=== PATIENT | male | born 1940 | race Caucasian/White ===

== ENCOUNTER 2016-08-05 19:23 | Emergency (ER) | payer MEDICARE, MEDICAID ==
[~2016-08-05] VITALS: Ht 170.2 cm; Wt 67.7 kg
[~2016-08-05 19:23] MED LIST: CHOL10008 PO; UBID400C6 PO; VITA1TAB94 PO
[2016-08-05 19:28] VITALS: BP 147/86; PULSE 56; RESP 16; O2SAT 99
[2016-08-05 19:56] LABS: BASOPHILS % (AUTO) 0.2 % (0-3); EOSINOPHILS % (AUTO) 0.4 % (0-5); MONOCYTES % (AUTO) 9.4 % (4-12); Mean Corpuscular Hemoglobin 37.2 pg (27.0-35.0); Platelet Count 180 bil/L (150-400)
--- NOTE | 2016-08-05 20:00 | ED.REPORT ---
HPI-Chest Pain 40 and Over Date of Service Aug 05, 2016 ED Provider: Dr. Juan Rust D.O. A 76 year old male with a medical history including hypertension presents to the ED with two episodes of chest pain onset last night, waking him up. The pain lasted a few seconds at a time and was described as "dull discomfort." He also reports an episode of diaphoresis this evening that lasted around 30 minutes. He denies nausea, shortness of breath, or dizziness. The patient has been experiencing intermittent hypertension (systolic 130 -140 in the evening) for several months. The patient took ASA this evening. He has had similar episodes of pain during the day over the past few months, but never at night. Nursing Notes Stated Complaint: CHEST PAIN/CHECK HEART Chief Complaint: Chest Pain Nursing Notes Reviewed: Yes Allergies: Coded Allergies: No Known Allergies (Unverified Allergy, Unknown, 08/05/16) Scheduled Cholecalciferol (Vitamin D3) (Vitamin D3) 1,000 Unit Tab.chew 1,000 UNIT PO DAILY Ubidecarenone (Co Q-10) 400 Mg Capsule 400 MG PO DAILY Vitamin B Complex (B-50 Complex) 1 Each Tablet 1 EACH PO DAILY General Time Seen by MD: 19:59 Chief Complaint Chest pain Hx Obtained From: Patient Arrived By: Walk-in Sudden in Onset?: Yes Onset Occurred: 17 - 20 hours ago Context of Onset: Sleeping Symptom Duration: Since onset Location: : Chest left Quality: Dull, Painful Severity: Current: Moderate Severity: Maximum: Moderate Associated with: Reports: Diaphoresis, Denies: Fever, Nausea, Shortness of Breath Pertinent Negative: Relieved by nothing Context Related History: Reports: Hypertension Recent Healthcare: No recent doctor visit Similar Sx Previous: Yes Past Medical History Past Medical History Hypertension not presently on BP meds 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 Dad of old age. He had one sister who ; she was a smoker and a nurse. No brothers. 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 Physical Exam Initial Vital Signs Vital Signs (First) Date Time Temp Pulse Resp B/P Pulse Ox O2 Delivery O2 Flow Rate FiO2 08/05/16 19:28 35.9 56 16 147/86 99 Room Air Initial VS: Reviewed Head / Eyes: Atraumatic, Normocephalic ENT: Conjunctiva normal, No scleral icterus Neck: Supple, Full range of motion Extremities: Vascular intact, Neuro intact, No swelling Skin: Warm, Dry, No cyanosis Neurologic: Alert, Oriented, Nonfocal Psychiatric: Mood/affect normal, Behavior normal, Normal thought content General/Constitutional: Awake, Alert, No acute distress Respiratory / Chest: Breath sounds NL, Breath sounds = bilat, No respiratory distress Cardiovascular: Heart rate NL, Regular rhythm, Heart sounds NL Abdomen: Soft, Non-tender Interpretation & Diagnostics Lab Results Interpretation Result Diagram: 08/05/16194208/05/161942 Test 08/05/16 19:43 08/05/16 23:32 White Blood Count 4.6th/mm3 (3.8-10.1) Red Blood Count 3.60mil/mm3 (4.40-5.80) Hemoglobin 13.4g/dL (13.8-17.2) Hematocrit 37.8% (41.0-50.0) Mean Corpuscular Volume 105.0fL (81-100) Mean Corpuscular Hemoglobin 37.2pg (27.0-35.0) Mean Corpuscular Hemoglobin Concent 35.4% (32.0-37.0) Red Cell Distribution Width 11.6% (12.3-15.4) Platelet Count 180bil/L (150-400) Neutrophils (%) (Auto) 70.0% (40-74) Lymphocytes (%) (Auto) 19.8% (14-46) Monocytes (%) (Auto) 9.4% (4-12) Eosinophils (%) (Auto) 0.4% (0-5) Basophils (%) (Auto) 0.2% (0-3) D-Dimer < 0.5mg/L (<0.50) Sodium Level 137mEq/L (134-144) Potassium Level 4.4mEq/L (3.5-5.2) Chloride Level 99mEq/L (97-108) Carbon Dioxide Level 25mmol/L (18-29) Blood Urea Nitrogen 15mg/dL (8-27) Creatinine 0.94mg/dL (0.76-1.27) Estimat Glomerular Filtration Rate 83mL/min (>59) Glucose Level 95mg/dL (60-99) Calcium Level 8.6mg/dL (8.5-10.1) Magnesium Level 2.2mg/dL (1.6-2.6) Total Bilirubin 0.6mg/dL (0.0-1.2) Aspartate Amino Transf (AST/SGOT) 21U/L (0-50) Alanine Aminotransferase (ALT/SGPT) 16U/L (0-44) Alkaline Phosphatase 84U/L (25-160) Total Protein 7.2g/dL (6.4-8.4) Albumin 4.5g/dL (3.4-5.0) Thyroid Stimulating Hormone (TSH) 2.050uIU/mL (0.450-4.500) Troponin T 0.010ug/L (0.0-0.011) ECG Interpretation ECG Interpretation: Normal sinus rhythm rate [address] segments No signs of ischemia Time: 19:39 Interpreted by: ED physician X-Ray Chest Interpretation Chest Xray Interpretation: IMPRESSION: No source of chest pain is seen. Lung volumes are relatively large, but this may simply represent an aggressive inspiratory effort. Dictated by: Rocky Saha M.D. on 08/05/2016 at 20:22 View: AP & lat Interpretation / Wet Read by: Interpret - Radiologist Re-Eval/Medical Decision Med Decision/Clinical Course Pain seems to be very atypical. Serial troponins were negative. D-dimer was negative. Of note he did feel a little sweaty when his blood pressure 1. Perhaps that is what he has been suffering with. His morning blood pressures been elevated as well. He will take his physician's recommendations and start taking some lisinopril before bedtime. He is going to keep a close eye was blood pressures have this goes. I do recommend close outpatient follow-up. He has had a recently normal and reassuring stress test. Acute RI ruled out. Close outpatient follow-up recommended. I considered acute RI, aortic dissection and pulmonary emboli to be highly unlikely based on history physical and diagnostics. Time of Eval: 21:08 Re-Evaluation/Progress Note: Patient rechecked. While discussing exercise habits, the patient's BP pamela to 156/76 accompanied by diaphoresis. Time of Eval: 23:50 Patient Status: Condition improved Re-Evaluation/Progress Note: Discussed with patient x-ray and lab results, diagnosis, and plan for discharge. Follow-up and return to the ER instructions given. Patient agrees with plan for care and all questions were addressed. Time of Eval: 00:30 Patient Status: Condition improved Re-Evaluation/Progress Note: Patient rechecked. Discussed healthy living habits. Counseled Regarding: Diagnosis, Lab results, Need for follow-up, When/why to return to ED Discharge & Departure Primary Impression: Chest pain Chest pain type: precordial chest pain Qualified Code: R07.2 - Precordial pain Disposition: Home Discharge Condition All VS Reviewed: Yes Condition: Stable Patient Instructions: Chest Pain (ED) Additional Instructions: Thank you for entrusting us with your care. Your EKG and laboratory work was very reassuring. Your serial troponins were negative and your blood clot screening blood test was negative. Your chest x- ray did not show any acute disease. The cause of your symptoms remain uncertain and needs close outpatient follow-up. Call your primary care provider tomorrow for a follow-up appointment. You may need another stress test. Return to the ER with any new or worsening symptoms. Referrals: NOPCP (PCP) Brennon Harrell MD [facility] Kulwant Attestation Portions of this note were transcribed by Day Antonio. I, Dr. Rust, personally performed the history, physical exam, and medical decision-making; I reviewed and confirmed the accuracy of the information in the transcribed note. Signed by: Kulwant Escobar, 08/06/2016, 00:27 copies to: Brennon Harrell MD; [facility] Juan Rust DO Aug 05, 2016 19:59 DAY ANTONIO Aug 05, 2016 20:49
[2016-08-05 20:23] LABS: Magnesium 2.2 mg/dL (1.6-2.6)
[2016-08-05 20:25] LABS: TROPONIN T < 0.010 ug/L (0.0-0.011)
--- NOTE | 2016-08-05 20:25 | DRSVH ---
PROCEDURE: X-RAY CHEST, TWO VIEWS ([id number]) INDICATIONS: CHEST PAIN TECHNIQUE: 2 views of the chest were acquired. COMPARISON: Plain films from 04/14/14 and 02/17/16 reviewed.. FINDINGS: Surgical changes and devices: None. Lungs and pleura: No pleural effusions or pneumothorax. Lungs are clear. Mediastinum: Mediastinal contours are normal. Heart size is normal. Bones and chest wall: No suspicious bony abnormalities. Soft tissues appear unremarkable. IMPRESSION: No source of chest pain is seen. Lung volumes are relatively large, but this may simply represent an aggressive inspiratory effort. Dictated by: Rocky Saha M.D. on 08/05/2016 at 20:22 Approved by: Rocky Saha M.D. on 08/05/2016 at 20:23
[2016-08-05 22:18] VITALS: BP 116/88; PULSE 54; RESP 20; O2SAT 100
[2016-08-06 00:40] VITALS: BP 128/80; PULSE 60; RESP 18; O2SAT 100
== END 2016-08-06 00:41 | disposition home or self-care (01) ==
LOC: SED 19:23
DX: R07.2 Precordial pain (principal); R61 Generalized hyperhidrosis; I10 Essential (primary) hypertension; J45.909 Unspecified asthma, uncomplicated; Z87.891 Personal history of nicotine dependence
CPT/HCPCS: 36415; 71020; 80053; 83735; 84443; 84484; 85025; 85379; 93005; 99285; G0463

== ENCOUNTER 2016-12-16 14:13 | Emergency (ER) | payer MEDICARE, MEDICAID ==
[~2016-12-16] VITALS: Ht 170.2 cm; Wt 68.2 kg
[2016-12-16 14:19] VITALS: BP 138/76; PULSE 66; RESP 15; O2SAT 98
[2016-12-16] MEDS ORDERED: LISI2.5T PO (14:22)
[2016-12-16 14:50] LABS: BASOPHILS % (AUTO) 0.2 % (0-3); EOSINOPHILS % (AUTO) 0.2 % (0-5); MONOCYTES % (AUTO) 9.3 % (4-12); Mean Corpuscular Hemoglobin 37.5 pg (27.0-35.0); Mean Corpuscular Volume 103.9 fL (81-100); NEUTROPHILS % (AUTO) 69.5 % (40-74); Platelet Count 189 bil/L (150-400)
--- NOTE | 2016-12-16 15:08 | DRSVH ---
PROCEDURE: X-RAY CHEST ONE VIEW, PORTABLE ([id number]) INDICATIONS: chest pain TECHNIQUE: One view of the chest was acquired. COMPARISON: [facility], CR, XR CHEST 1VW (PORTABLE), 02/17/2016, 13:36. FINDINGS: Surgical changes and devices: None. Lungs and pleura: No pleural effusions or pneumothorax. Lungs are clear. Mediastinum: Mediastinal contours appear normal. Heart size is normal. Bones and chest wall: No suspicious bony lesions. Overlying soft tissues appear unremarkable. IMPRESSION: No acute cardiopulmonary disease process. Dictated by: Mena Arreola MD, PhD on 12/16/2016 at 15:05 Approved by: Mena Arreola MD, PhD on 12/16/2016 at 15:06
--- NOTE | 2016-12-16 15:08 | ED.REPORT ---
HPI-Chest Pain 40 and Over Date of Service Dec 16, 2016 ED Provider: Dr. Seals Pt is a 76 year old male with a history asthma and HTN who presents to the ED complaining of left-sided intermittent chest pain onset for the past week. He c/ o associated SOB, diaphoresis, lightheadedness, and fatigue. The pt denies swelling in his legs and change in LOC. The pt took 81 mg of Aspirin to alleviate his symptoms this morning, and takes lisinopril routinely. He describes the chest pain as "tightness," reporting that it was most severe 2 days ago. The episodes of chest pain generally last 10-15 seconds with his most recent episode at 11:00 today. He denies having more than one episode today, and does not currently have chest pain. The pain is improved with movement and drinking water. He was previously admitted for suspected TIA 2 years ago and was diagnosed previously with potential sleep apnea. Nursing Notes Stated Complaint: CHEST PAIN Chief Complaint: Chest Pain Nursing Notes Reviewed: Yes (Foody, Ocular Therapeutix reconciled) Allergies: Coded Allergies: No Known Allergies (Verified Allergy, Unknown, 12/16/16) Scheduled Cholecalciferol (Vitamin D3) (Vitamin D3) 1,000 Unit Tab.chew 1,000 UNIT PO DAILY Lisinopril (Lisinopril) 2.5 Mg Tablet 2.5 MG PO BID Vitamin B Complex (B-50 Complex) 1 Each Tablet 1 EACH PO DAILY General Time Seen by MD: 15:01 Chief Complaint Chest pain Hx Obtained From: Patient Arrived By: Walk-in Sudden in Onset?: No Onset Occurred: 1 week ago Symptom Duration: Intermittent Location: : Chest left Quality: Painful Severity: Current: No pain currently Severity: Maximum: Moderate Recent Healthcare: No recent doctor visit, No recent hospitalization Similar Sx Previous: Yes Past Medical History Past Medical History Notes: Admit for CP w/negative stress test 01/2018 Last ED Visit 07/2016 for atypical CP 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 Dad of old age. He had one sister who ; she was a smoker and a nurse. No brothers. 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 Physical Exam Initial Vital Signs Vital Signs (First) Date Time Temp Pulse Resp B/P Pulse Ox O2 Delivery O2 Flow Rate FiO2 12/16/16 14:19 36.7 66 15 138/76 98 Room Air Initial VS: Reviewed ENT: Mucous membranes moist, Conjunctiva normal, No scleral icterus Neck: Supple, Full range of motion Extremities: Vascular intact, Neuro intact Skin: Warm, Dry, No cyanosis Neurologic: Alert, Oriented, Nonfocal Psychiatric: Mood/affect normal, Behavior normal General/Constitutional: Awake, Alert, Cooperative Respiratory / Chest: Atraumatic, Breath sounds NL, Breath sounds = bilat Cardiovascular: Heart rate NL, Regular rhythm, Heart sounds NL Abdomen: Atraumatic, Soft, Non-tender Interpretation & Diagnostics Interpretation & Diagnostics: Echo: Interpretation Summary 1. Normal left ventricular size, wall thickness and systolic function with an estimated EF of 60-65% 2. Normal right ventricular size and systolic function. 3. Trace aortic insufficiency Compared to the previous study of 2013, no appreciable change Lab Results Interpretation Result Diagram: 12/16/16 1440 12/16/16 1440 Test 12/16/16 14:40 White Blood Count 4.1th/mm3 (3.8-10.1) Red Blood Count 3.57mil/mm3 (4.40-5.80) Hemoglobin 13.4g/dL (13.8-17.2) Hematocrit 37.1% (41.0-50.0) Mean Corpuscular Volume 103.9fL (81-100) Mean Corpuscular Hemoglobin 37.5pg (27.0-35.0) Mean Corpuscular Hemoglobin Concent 36.1% (32.0-37.0) Red Cell Distribution Width 11.4% (12.3-15.4) Platelet Count 189bil/L (150-400) Neutrophils (%) (Auto) 69.5% (40-74) Lymphocytes (%) (Auto) 20.8% (14-46) Monocytes (%) (Auto) 9.3% (4-12) Eosinophils (%) (Auto) 0.2% (0-5) Basophils (%) (Auto) 0.2% (0-3) Sodium Level 135mEq/L (134-144) Potassium Level 4.7mEq/L (3.5-5.2) Chloride Level 98mEq/L (97-108) Carbon Dioxide Level 25mmol/L (18-29) Blood Urea Nitrogen 12mg/dL (8-27) Creatinine 1.02mg/dL (0.76-1.27) Estimat Glomerular Filtration Rate 75mL/min (>59) Glucose Level 110mg/dL (60-99) Calcium Level 9.6mg/dL (8.5-10.1) Magnesium Level 2.4mg/dL (1.6-2.6) Total Bilirubin 0.7mg/dL (0.0-1.2) Aspartate Amino Transf (AST/SGOT) 19U/L (0-50) Alanine Aminotransferase (ALT/SGPT) 18U/L (0-44) Alkaline Phosphatase 85U/L (25-160) Troponin T < 0.010ug/L (0.0-0.011) Total Protein 7.3g/dL (6.4-8.4) Albumin 4.5g/dL (3.4-5.0) Lab Results Interpretation: CBC is normal CMP normal Troponin negative ECG Interpretation ECG Interpretation: NSR with no acute ischemic change. Mild T wave inversion inferior, unchanged from 07/2016 Time: 15:08 Interpreted by: ED physician X-Ray Chest Interpretation Chest Xray Interpretation: IMPRESSION: No acute cardiopulmonary disease process. Dictated by: Mena Arreola MD, PhD on 12/16/2016 at 15:05 View: Portable, 1 view Interpretation / Wet Read by: Interpret - Radiologist Re-Eval/Medical Decision Med Decision/Clinical Course This is a pleasant 76-year-old male presented with a very atypical chest discomfort lasts for a few seconds and is being going on over the past week, it recurred multiple 2 days ago, and occurred for less than 10 seconds times once today at 11 AM. He has never had symptoms last for more than a few seconds, EKG has a small sense of shortness of breath, and he reports that he is be concern is that this is linked to the possible sleep apnea for which he is being worked up. He describes that he had a a nondiagnostic sleep studies test , but it apparently is being re-done. Procedure feels tired because his sleep is very poor, is very concerned these develop heart disease or cardiopulmonary process as a result. Symptoms improved with exertion if he gets up and moves around. There is no diaphoresis or nausea. He is no other high risk features. he was admitted in January 2016 for chest pain and had a negative workup including a normal stress test at that time. He had an atypical chest pain visit in July the ED where had negative d-dimer repeat labs. His physical exam is normal. No clinical features of PE. His HEART Score is 3 , which puts him at low probability for MACE, and indicates patient is a reasonable a candidate for discharge and outpatient followup EKG is unchanged. Initial troponin is negative, this is after a week of symptoms, so not finding evidence to need to do serial sets of troponin today. However given his high concerns, and recent stress test, an echo was performed to look for congestive heart failure, hence a pulmonary hypertension-however this is also normal. The patient has normal vitals, he clinically well, and his laboratory and imaging studies an EKG revealed no clear emergent etiology. The patient slightly frustrated, but is also understanding. I recommended follow-up with his PCP, but I do not have a definitive answer for the atypical symptoms he has displayed. He is advised continue the workup for sleep apnea as planned. Return and routine precautions reviewed. Patient's discharged in good condition. Source of Hx: Old records Time of Eval: 18:07 Re-Evaluation/Progress Note: IMPRESSION: No acute cardiopulmonary disease process. Dictated by: Mena Arreola MD, PhD on 12/16/2016 at 15:05 Differential Diagnosis: Positive: Chest pain, acute, Negative: Acute coronary syndrome, Acute myocardial infarct, Aortic dissection, Aortic stenosis, Congestive heart failure, Dysrhythmia, Esophageal rupture, Gun shot wound chest, Kika-Edge syndrome, Myocardial infarction, Pneumomediastinum, Pneumonia, Pneumothorax, Pulmonary edema, Pulmonary embolism , Rib fracture, Stab wound chest Counseled Regarding: Diagnosis, Lab results, Need for follow-up, When/why to return to ED Discharge & Departure Primary Impression: Chest pain Chest pain type: unspecified Qualified Code: R07.9 - Chest pain, unspecified Disposition: Home Discharge Condition All VS Reviewed: Yes Condition: Stable Patient Instructions: Chest Pain (ED) Additional Instructions: 1. A dangerous cause of the chest discomfort and symptoms was not identified and her testing today. 2. Your blood tests, EKG, and echocardiogram were normal. The echocardiogram did not find any signs of heart failure, or other signs of cardiopulmonary dysfunction from sleep apnea. 3. Tinea current medications. Follow-up for recheck with your doctor. Call for an appointment. Referrals: Brennon Harrell MD (PCP) Scribe Attestation Portions of this note were transcribed by Wendy Sherwood. I, Dr. Seals personally performed the history, physical exam and medical decision-making; I reviewed and confirmed the accuracy of the information in the transcribed note. Signed by: Kulwant Browning, 12/16/16 and 16:50. copies to: Brennon Harrell MD, Matthew F MD Dec 16, 2016 15:08 Wendy Jenkins Dec 16, 2016 15:16
[2016-12-16 15:13] LABS: TROPONIN T < 0.010 ug/L (0.0-0.011)
[2016-12-16 15:22] LABS: Magnesium 2.4 mg/dL (1.6-2.6)
[2016-12-16 16:50] VITALS: BP 115/74; PULSE 58; RESP 13; O2SAT 98
--- NOTE | 2016-12-16 17:39 | DRSVH ---
[facility] [address] [place] [address] Echocardiogram Report Name: LISSTEH HALE FStudy Date: 12/16/2016 Height: 67 in Hospital Exam Location: [facility] Weight: 150 lb Gender: Male BSA: 1.8 m2 : 1940 Age: 76 yrs BP: 67/150 mmHg Reason For Study: CHEST PAIN Ordering Physician: Performed By: Castro Spaulding Interpretation Summary 1. Normal left ventricular size, wall thickness and systolic function with an estimated EF of 60-65% 2. Normal right ventricular size and systolic function. 3. Trace aortic insufficiency Compared to the previous study of 2013, no appreciable change Procedure: A two-dimensional transthoracic echocardiogram with color flow and Doppler was performed. The study quality was technically good. Comparison is made with the echocardiogram of 04/15/14. The patient was in normal sinus rhythm during the exam. Left Ventricle: The left ventricle is normal in size. There is normal left ventricular wall thickness. The ejection fraction is estimated to be 60-65%. No obvious wall motion abnormalities. Right Ventricle: The right ventricle is normal in size and function. Atria: Both atria are normal in size. The interatrial septum is intact with no evidence for an atrial septal defect. Mitral Valve: The mitral valve is normal in structure and function. There is trace mitral regurgitation. Aortic Valve: The aortic valve is trileaflet. The aortic valve opens well. There is trace aortic regurgitation. Tricuspid Valve: The tricuspid valve leaflets are thin and pliable. There is mild tricuspid regurgitation. The right ventricular systolic pressure is estimated at 28 mmHg assuming a right atrial pressure of 3 mm Hg. Pulmonic Valve: The pulmonic valve is normal in structure and function. There is trace pulmonic regurgitation. Great Vessels: The aortic root is normal size. The dimensions of the ascending aorta are normal. The pulmonary artery is normal size. The IVC is of normal diameter and collapses greater than 50% with a sniff. This suggests a low right atrial pressure of 3 mm Hg. Pericardium/ Pleura There is no pericardial effusion. There is no pleural effusion. Incidental finding of multiple liver cysts is noted. MMode/2D Measurements & Calculations LVIDd: 4.5 cm LA dimension: 2.8 cm RA long axis Ao root diam LVIDs: 2.8 cm FS: 38.8 % LA A2 area: 18.6 cm RA area Aortic Jxn: 2.3 cm EPSS: 0.75 cm LA A4 area: 13.1 cm asc Aorta Diam IVSd: 0.81 cm LA length (vol) : 11.1 cm LVPWd: 0.92 cm RA vol Ao Arch Diam (Prox LA vol: 45.6 ml : 24.0 ml Trans): 2.7 cm LA vol index RA : 13.4 mm2 IVC diam: 0.63 cm LV caldera. diameter/BSA LV sys. diameter/BSA (cm/m^2): 2.5 (cm/m^2): 1.6 Doppler Measurements & Calculations Ao V2 max MV E max oneida MV E/A: 0.83 TR max oneida: 251.6 cm/sec : 113.6 cm/sec : 61.6 cm/sec Pulm A Revs Dur TR max P.3 mmHg Ao max PG MV A max oneida PA V2 max: 70.4 cm/sec : 5.2 mmHg : 74.6 cm/sec MV A dur PA mean P.2 mmHg Ao mean PG : 0.13 sec PA Accel Time: 0.14 sec : 2.9 mmHg MV dec time Ao V2 mean PA V2 mean Pulm A Revs Dur - MV A : 0.27 sec : 81.5 cm/sec : 54.1 cm/sec Dur: -0.02 msec Ao V2 VTI PA pr(Accel) : 25.4 cm : 20.8 mmHg Reading Physician:05:38 PM
[2016-12-16 18:47] VITALS: BP 132/80; PULSE 61; RESP 16; O2SAT 100
== END 2016-12-16 18:48 | disposition home or self-care (01) ==
LOC: SED 14:13
DX: R07.9 Chest pain, unspecified (principal); J45.909 Unspecified asthma, uncomplicated; I10 Essential (primary) hypertension; Z87.891 Personal history of nicotine dependence
CPT/HCPCS: 36415; 71010; 80053; 82948; 83735; 84484; 85025; 93005; 99285; C8929